=== PATIENT | female | born 1985 | race Caucasian/White ===

== ENCOUNTER 2025-04-06 08:50 | Outpatient (CLI) | payer MEDICAID, SELFPAY ==
--- OUTSIDE RECORDS SUMMARY | 2025-04-09 08:53 | XMS_ITS | Clinical Summary ---
Author Organization [facility] Address [address] [place] [address] Phone Care Team Providers Care Facility Sales And Admin Name Role Phone Ethel Fenton APRN Primary Care Physician Conditions or Problems No information available. Medications No information available. Medications Administered No information available. Allergies, Adverse Reactions, Alerts No information available. Results No information available. Plan of Care No information available. Procedures No information available. Vital Signs No information available. Immunizations No information available. Advance Directives No information available.
== END 2025-04-06 23:59 | disposition home or self-care (01) ==
LOC: LAB.DROPOF 04-09 08:50
PROVIDERS: Visit Provider Nurse Practitioner
DX: R35.0 Frequency of micturition (principal)
CPT/HCPCS: 87086

== ENCOUNTER 2025-04-18 08:53 | Emergency (ER) | payer MEDICAID, SELFPAY ==
[2025-04-18] VITALS (13 sets, daily range): BP systolic 77–142; BP diastolic 33–99; PULSE 80–99; RESP 14–21; TEMP 36.6–36.8; O2SAT 95–99; BMI 32.8
--- NOTE | 2025-04-18 09:04 | ECG_ITS ---
APPROVED REPORT Exam: Resting ECG HR:90 bpm ECG Measurements Heart Rate 90 AXES KS 147 P 51 QRSd 101 QRS 49 QT 346 T 15 QTc 394 Conclusion SINUS RHYTHM NONSPECIFIC T-WAVE ABNORMALITY BORDERLINE ECG UNCONFIRMED REPORT Electronically signed by : Morgan Lindquist, 04/18/2025 15:21:14
--- OUTSIDE RECORDS SUMMARY | 2025-04-18 09:07 | XMS_ITS | Clinical Summary ---
Author Organization [employer] [facility] Address [address] [place] [address] Phone Care Team Providers Care General Handling Supervisor Name Role Phone Ethel Fenton APRN Primary [...]
[2025-04-18 09:13] LABS: Microscopic, Urine URINE MICROSCOPIC (MICROSCOPIC)
--- NOTE | 2025-04-18 09:29 | HMH.EDGENADL ---
Discharge Plan Disposition Chief Complaint: Alcohol Prescriptions Prescriptions: No Action multivitamin Tablet 1 tab PO DAILY atorvastatin [Lipitor] 40 mg tablet 40 mg PO DAILY levetiracetam [Keppra] 500 mg tablet 500 mg PO BID folic acid 20 mg capsule 20 mg PO DAILY lisinopril 10 mg tablet 10 mg PO DAILY sertraline 25 mg tablet 25 mg PO DAILY omeprazole 20 mg capsule,delayed release(DR/EC) 20 mg PO DAILY black cohosh 200 mg capsule 200 mg PO DAILY topiramate 25 mg capsule,extended release 24hr 25 mg PO DAILY Veozah 45 mg tablet 45 mg PO DAILY thiamine HCl (vitamin B1) 100 mg capsule 100 mg PO DAILY phenazopyridine [Pyridium] 200 mg tablet 200 mg PO Q8H 2 Days Qty: 6 0RF nitrofurantoin monohyd/m-cryst [Macrobid] 100 mg capsule 100 mg PO Q12H 7 Days Qty: 14 0RF Rx Instructions: must administer with a meal/food Referrals Follow up/Referrals: Provider,Referral, MD [Primary Care Provider, Medical] - See instructions Clinical Impressions Clinical Impression: Alcohol withdrawal syndrome, Alcohol dependence Print Language Print Language: [place] Discharge ED Provider: Tessie Lindquist General Adult HPI General Chief complaint: Alcohol Stated complaint: alcohol withdrawl ba racing pulse Time Seen by Provider: 04/18/25 09:16 Mode of Arrival: Ambulatory Source of Information: Patient Description of Symptoms (Recalled from ER Triage Doc. by RN): pt is here for alcohol withdrawl s/s, pt drinks 1-2 pints a day of vodkaa and has been on a binge for 3 weeks, before that had been sober since november, attends AA meetings. her last drink was at 0900 today before coming to ER History of Present Illness HPI narrative: Patient is a 39-year-old female presenting today with alcohol withdrawal symptoms. She states I am trying to quit but my body will not let me. States that she has been intermittently drinking heavily since she was 16 years old. Did have 6-month period of sobriety earlier this year. However the last 3 weeks she states she has been drinking during all waking hours including multiple pints of vodka daily. Has been having some disagreements with her boyfriend and feeling like she is having panic attacks which have prompted some of her drinking. Has tried to stop cold turkey the last several days but has been unable to and has been continuing to drink some including this morning. States that she does want help she wants to stop drinking and she also wants potential placement in a rehab facility. Related Data Home Medications ?Medication ?Instructions ?Recorded ?Confirmed atorvastatin 40 mg tablet (Lipitor) 40 mg PO DAILY 04/06/25 04/06/25 black cohosh 200 mg capsule 200 mg PO DAILY 04/06/25 04/06/25 fezolinetant 45 mg tablet (Veozah) 45 mg PO DAILY 04/06/25 04/06/25 folic acid 20 mg capsule 20 mg PO DAILY 04/06/25 04/06/25 levetiracetam 500 mg tablet 500 mg PO BID 04/06/25 04/06/25 (Keppra) lisinopril 10 mg tablet 10 mg PO DAILY 04/06/25 04/06/25 multivitamin 1 tab PO DAILY 04/06/25 04/06/25 omeprazole 20 mg capsule,delayed 20 mg PO DAILY 04/06/25 04/06/25 release sertraline 25 mg tablet 25 mg PO DAILY 04/06/25 04/06/25 thiamine HCl (vitamin B1) 100 mg 100 mg PO DAILY 04/06/25 04/06/25 capsule topiramate 25 mg capsule,extended 25 mg PO DAILY 04/06/25 04/06/25 release 24 hr Previous Rx's ?Medication ?Instructions ?Recorded nitrofurantoin 100 mg PO Q12H 7 days #14 caps 04/06/25 monohydrate/macrocrystals 100 mg capsule (Macrobid) phenazopyridine 200 mg tablet 200 mg PO Q8H 2 days #6 tabs 04/06/25 (Pyridium) Allergies Allergy/AdvReac Type Severity Reaction Status Date / Time cephalexin (From Keflex) Allergy Verified 04/06/25 14:13 clarithromycin (From Biaxin) Allergy Verified 04/06/25 14:13 prednisone Allergy Verified 04/06/25 14:13 [facility] Disclaimer: The information contained in this section may have been updated after the patient was seen, as this information can be updated by other users. Medical History (Updated 04/18/25 @ 09:28 by Tessie Lindquist MD) UTI (urinary tract infection) High cholesterol Hypertension GERD (gastroesophageal reflux disease) Social History (Updated 04/06/25 @ 14:42 by Jerri Cao APRN) Smoking Status: Never smoker alcohol intake: never current occupational status: employed Travel in the last 8 weeks?: None Have you lived/traveled outside US in past 30 days?: No Contact w/someone who lives/traveled outside US past 30 days?: No Exposure to someone with infectious disease in past 14 days?: No Do you have a fever (greater than 100.4 F or 38 C)?: No Have you tested positive for COVID-19?: No Exposed to someone with COVID-19 in past 14 days?: No Do you have a sore throat?: No Do you have a cough?: No Do you have any weakness?: No Do you have any diarrhea?: No Are you experiencing any unusual bleeding?: No Do you have any muscle aches/pain?: No Do you have any abdominal pain?: Yes Are you experiencing loss of taste or smell?: No ROS Obtained: Yes All systems reviewed & no additional complaints except as documented Physical Exam General General appearance: anxious (Crying) Respiratory Respiratory exam: Present normal lung sounds bilaterally Cardiovascular Cardiovascular exam: Present regular rate; Absent normal rhythm Abdominal Exam Abdominal exam: Present soft; Absent distention Neurological Exam Neurological exam: Present alert and oriented X3 Medical Decision Making Medical Records Screening: Per USPSTF and CDC recommendations, given the prevalence of disease in our region, it is our hospital?s policy to screen for HIV and viral Hepatitis for all patients aged 18 and over and those with ongoing risk factors. Gamaliel Inquiry Pt receiving controlled substance: No Vital Signs: 04/18/25 09:09 04/18/25 09:30 04/18/25 10:00 Temperature 97.9 F Temperature Source Oral Pulse Rate 82 82 Pulse Rate [Left Radial] 99 H Respiratory Rate 20 20 20 Blood Pressure 142/93 H 102/59 L Blood Pressure [Right Arm] 139/99 H Blood Pressure Mean 104 73 Blood Pressure Mean [Right Arm] 112 02 Sat by Pulse Oximetry 99 97 96 Oxygen Delivery Method Room Air 04/18/25 10:15 04/18/25 10:30 04/18/25 11:00 Temperature Temperature Source Pulse Rate 92 H 82 83 Pulse Rate [Left Radial] Respiratory Rate 14 20 20 Blood Pressure 102/59 L 120/85 104/57 L Blood Pressure [Right Arm] Blood Pressure Mean 94 72 Blood Pressure Mean [Right Arm] 02 Sat by Pulse Oximetry 95 99 95 Oxygen Delivery Method 04/18/25 12:11 04/18/25 12:56 04/18/25 13:01 Temperature Temperature Source Pulse Rate 88 82 84 Pulse Rate [Left Radial] Respiratory Rate 16 18 19 Blood Pressure 90/47 L 93/43 L 91/45 L Blood Pressure [Right Arm] Blood Pressure Mean 61 58 Blood Pressure Mean [Right Arm] 02 Sat by Pulse Oximetry 95 95 95 Oxygen Delivery Method Room Air 04/18/25 13:30 Temperature Temperature Source Pulse Rate 85 Pulse Rate [Left Radial] Respiratory Rate 21 Blood Pressure 89/37 L Blood Pressure [Right Arm] Blood Pressure Mean Blood Pressure Mean [Right Arm] 02 Sat by Pulse Oximetry 95 Oxygen Delivery Method Room Air Lab Data Lab results reviewed: Yes I reviewed the patient's lab results. Lab Results 04/18/25 08:59: Urine Color Yellow, Urine Appearance Clear, Urine pH 6.0, Ur Specific Hardy 1.020, Urine Protein Negative, Urine Glucose (UA) Negative, Urine Ketones Negative, Urine Blood Negative, Urine Nitrate Negative, Urine Bilirubin Negative, Urine Urobilinogen 0.2, Ur Leukocyte Esterase 1+ A, Urine WBC 5-10, Ur Squamous Epith Cells 5-10, Urine Bacteria 2+, Urine Opiates Screen Negative, Urine Methadone Screen Negative, Ur Barbituates Screen Negative, Ur Phencyclidine Scrn Negative, Ur Amphetamines Screen Negative, U Benzodiazepines Scrn Negative, Urine Cocaine Screen Negative, U Marijuana (THC) Screen Positive H 04/18/25 09:30: WBC 9.9, RBC 4.88, Hgb 14.0, Hct 42.6, MCV 87.3, MCH 28.7, MCHC 32.9, RDW 12.8, Plt Count 269, MPV 9.7, Neut % (Auto) 76.1, Lymph % (Auto) 19.8, [place] % (Auto) 3.0, Eos % (Auto) 0.1, Baso % (Auto) 0.7, Neut # (Auto) 7.5, Lymph # (Auto) 2.0, [place] # (Auto) 0.3, Eos # (Auto) 0.0, Baso # (Auto) 0.1, Sodium 138, Potassium 3.7, Chloride 108 H, Carbon Dioxide 21 L, Anion Gap 12.7, BUN 13, Creatinine 0.80, Estimated Creat Clear 141, Estimated GFR 79, Est GFR ( Amer) 96, Glucose 97, Calcium 9.9, Magnesium 1.8, Total Bilirubin 0.4, AST 29, ALT 18, Alkaline Phosphatase 58, Total Protein 7.7, Albumin 4.6, Globulin 3.1, Albumin/Globulin Ratio 1.5, Serum HCG, Qual Negative, Salicylates < 1.0 L, Acetaminophen < 10 L, Plasma/Serum Alcohol 231 H 04/18/25 13:38: Plasma/Serum Alcohol 187 H 04/18/25 09:30 04/18/25 09:30 Orders (Tests/Meds): ED MEDICATIONS Generic Name Dose Route Start Last Admin Trade Name Freq PRN Reason Stop Dose Admin Multivitamins 10 ml/ Thiamine 1,015 mls @ 150 mls/hr 04/18/25 09:27 04/18/25 09:42 HCl 100 mg/ Magnesium Sulfate IV 04/18/25 16:12 150 mls/hr 2 gm/ Lactated Ringer's .[id number] BROOKS Administration Sodium Chloride 10 ml 04/18/25 09:26 Sodium Chloride 0.9% 10ml Vial IV 05/18/25 09:25 NEEDED PRN to Dilute Lorazepam inj Discontinued Medications Generic Name Dose Route Start Last Admin Trade Name Freq PRN Reason Stop Dose Admin Chlordiazepoxide HCl 50 mg 04/18/25 11:26 04/18/25 11:39 Chlordiazepoxide 25mg Capsule PO 04/18/25 11:27 50 mg ONCE ONE Administration Lorazepam 1 mg 04/18/25 09:26 04/18/25 09:34 Lorazepam 2mg/Ml Vial IV 04/18/25 09:27 1 mg ONCE ONE Administration ORDERS Category Date Time Status Consult Bass Singer [CONS] Routine Cons 04/18/25 09:18 Active Acetaminophen Stat Lab 04/18/25 09:30 Completed Blood alcohol [Ethyl Alcohol] Stat Lab 04/18/25 13:38 Completed CBC w/Auto Diff [Complete Blood Count Auto Diff] Stat Lab 04/18/25 09:30 Completed CMP [Comprehensive Metabolic Panel] Stat Lab 04/18/25 09:30 Completed Drug Screen,Urine Stat Lab 04/18/25 08:59 Completed Ethanol [Ethyl Alcohol] Stat Lab 04/18/25 09:30 Completed HCG Qualitative, Serum Stat Lab 04/18/25 09:30 Completed Magnesium Stat Lab 04/18/25 09:30 Completed Salicylate Stat Lab 04/18/25 09:30 Completed UA [Urinalysis and Microscopic] Stat Lab 04/18/25 08:59 Completed Urine Culture Stat Micro 04/18/25 08:59 Received Medical Decision Narrative: Very well-appearing 39-year-old female with a CIWA score of 0 presents today with what she describes as alcohol withdrawal symptoms with significant and heavy dependency that is been chronic and intermittent. We have consulted with her peers technical support engineer and will attempt to get the patient to [facility]. In the meantime we will give her rally pack some Ativan check basic electrolytes and reassess. She does not require inpatient hospitalization at the moment regarding her withdrawal but I do believe she would significantly benefit from the rehab facility such as as [facility]. Reassessment 2:03 PM patient has remained very stable. Sheri our mis specialist had extensive involvement with the patient ultimately was able to get the patient a bed at [facility] for acute rehab as the patient did not feel comfortable going home for multiple reasons including safety reasons but also felt as though she may have worsening withdrawal. Sheri also spoke to [facility] both of whom have accepted the patient. Patient will be discharged from my perspective and will subsequently be transported back home with deputies to get her clothing and materials and then she will be taken to [facility]. Patient did not have any evidence of severe withdrawal while in the emergency department. Critical Care Critical Care Time Critical Care Time: Yes Attestation: On 04/18/25, the high probability of a clinically significant, sudden or life threatening deterioration of the following system(s) required my full and direct attention, intervention and personal management. The time I documented below is in addition to time spent performing reported procedures but includes the following listed in this critical care notation. Total Time Total Critical Care Time: 35
[2025-04-18] MEDS: LORazepam 2MG/ML VIAL 1 MG IV (09:34)
[2025-04-18] MEDS: MVI, ADULT NO.1 WITH VIT K 10 ML, THIAMINE HCL 100 MG, MAGNESIUM SULFATE 2 GM in LACTAT... 150 ML IV (09:42)
[2025-04-18 09:46] LABS: Basophils # 0.1 K/mm3 (0-0.2); Basophils % 0.7 % (0.1-2.0); Eosinophils % 0.1 % (0.1-12.0); Hematocrit 42.6 % (37.0-47.0); Immature Granulocytes # 0.03 10^3uL; Immature Granulocytes % 0.3 %; Lymphocytes % 19.8 % (10-50); Mean Corpuscular HGB Conc 32.9 g/dL (31.8-35.4); Mean Corpuscular Hemoglobin 28.7 pg (27.0-31.2); Mean Corpuscular Volume 87.3 fl (81-99); Mean Platelet Volume 9.7 fl (7.4-10.4); Monocytes # 0.3 K/mm3 (0.1-1.0); Neutrophils # 7.5 K/mm3 (1.8-7.8); Neutrophils % 76.1 % (37.0-80.0); Nucleated Red Blood Cells # 0 10^3/uL; Nucleated Red Blood Cells % 0 %; Platelet Count 269 K/mm3 (142-424); Red Blood Count 4.88 M/mm3 (4.20-5.40); Red Cell Distribution Width 12.8 % (11.5-17.5); Red Cell Distribution Width-SD 40.9 fL; White Blood Count 9.9 K/mm3 (4.8-10.8)
[2025-04-18 09:57] LABS: Appearance,Urine CLEAR (Clear); Bilirubin,Urine Negative (Negative); Blood, Urine Negative (Negative); Color,Urine YELLOW (Yellow); Glucose,Urine (UA) Negative (Negative); Ketones,Urine Negative (Negative); Leukocyte Esterase,Urine 1+ (Negative); Nitrate,Urine Negative (Negative); Protein,Urine Negative (Negative); Urobilinogen,Urine 0.2 EU/dl (0.2)
[2025-04-18 09:58] LABS: Alanine Aminotransferase 18 U/L (12-78); Albumin Level 4.6 g/dl (3.5-5.0); Albumin/Globulin Ratio 1.5 (1.1-1.8); Alkaline Phosphatase 58 U/L (38-126); Anion Gap 12.7 mEq/L (5-15); Aspartate Amino Transferase 29 U/L (14-36); Bilirubin,Total 0.4 mg/dl (0.2-1.3); Blood Urea Nitrogen 13 mg/dl (7-17); Calcium 9.9 mg/dl (8.4-10.2); Carbon Dioxide 21 mmol/L (22.0-30.0); Chloride 108 mmol/L (98-107); Creatinine Clearance Estimated 141 mL/min (50-200); Estimated Glomerular Filt Rate 79 ml/min (>60); GFR (African American) 96 ML/MIN (>60); Globulin 3.1 g/dL (1.3-3.2); Glucose 97 mg/dl (74-100); Magnesium 1.8 mg/dl (1.6-2.3); Potassium 3.7 mmoL/L (3.5-5.1); Sodium 138 mmol/L (136-145); Total Protein,Serum 7.7 g/dl (6.3-8.2)
[2025-04-18 10:17] LABS: Ethyl Alcohol 231 mg/dl (0-10)
[2025-04-18 10:18] LABS: HCG Qualitative, Serum Negative (Negative)
--- NOTE | 2025-04-18 10:26 | PC.NURSE ---
alissa peer support at bedside at this time
[2025-04-18 10:51] LABS: Bacteria,Urine 2+ /lpf
[2025-04-18 12:09] LABS: Acetaminophen < 10 ug/ml (10-30); Salicylate < 1.0 mg/dL (2.0-20.0)
--- NOTE | 2025-04-18 12:13 | PC.NURSE ---
pt completed intake assessment with [facility], awaiting last few lab results to fax over to them and will await evaluation response, pt is resting quietly and has eaten a lunch tray and denies any needs at this time
[2025-04-18 12:40] LABS: Barbiturates Screen,Urine Negative ng/ml (<200); Benzodiazepines Screen,Urine Negative ng/ml (<200)
[2025-04-18 12:41] LABS: Amphetamine/Metha Screen,Urine Negative ng/ml (<1000); Methadone Screen,Urine Negative ng/ml (<300)
[2025-04-18 12:42] LABS: Cannabinoid Screen,Urine Positive ng/ml (<50)
[2025-04-18 12:43] LABS: Cocaine Screen,Urine Negative ng/ml (<300); Opiate Screen,Urine Negative ng/ml (<300)
[2025-04-18 12:44] LABS: Phencyclidine Screen,Urine Negative ng/ml (<25)
--- NOTE | 2025-04-18 13:05 | PC.NURSE ---
The pts intake packet was successfully sent to [facility].
--- NOTE | 2025-04-18 13:49 | PC.NURSE ---
Dr. Lindquist aware of the pts hypotension. He states it is okay at this time. No orders. I rounded on the pt. pt is sleeping on her side. call owens in reach.
[2025-04-18 13:52] LABS: Ethyl Alcohol 187 mg/dl (0-10)
--- NOTE | 2025-04-18 14:16 | PC.NURSE ---
called report to ruba rice at [facility]
--- NOTE | 2025-04-18 14:24 | PC.NURSE ---
pt does not want to go to [facility] and wants to go home before going to [facility], pt is still legally intoxicated and we have requested ride from [facility], they arent available for transport until 5pm
--- NOTE | 2025-04-18 14:27 | PC.NURSE ---
Dr Lindquist wanted pt ambulated. Shahla and I got pt out of bed and pt was able to ambulate without difficulties
--- NOTE | 2025-04-18 14:37 | PC.NURSE ---
Called [facility] to advise them of this pt left the ER in a black 4 dr melgar and the pt was still under the influence
--- NOTE | 2025-04-18 14:41 | PC.NURSE ---
Pt ambulated out of the ED Sheri and I stopped and spoke with her regarding a ride home. The pt refused and said she was walking home. I walked out to the parking lot and she got in the assembly line driver seat of a black sedan and drove off. The [employer] executive secretary social welfare was present and notified Yrn Benitez, we also called and notified dispatch due to the pt being intoxicated over the legal limit.
--- NOTE | 2025-04-18 17:58 | PEERSUPPORT ---
Peer Support Note Patient Information Patient Information: DOS: 04/18/2025 ? ETOH Last Ingested: 04/18/2025 ? ETOH level at Admission: 231 ? ETOH HX: Pt started drinking again, progressed to 2 pints- a fifth of vodka daily. Pt Waking up in middle of the night with heart beating fast then drinking for comfort.? ? ETHO Current Consumption: 1-2 pints of vodka daily , sometimes a fifth of vodka. ? Previous Treatment: Inpatient treatment ? Longest Length of Sobriety: 1 year ? Legal Issues: None ? Support System: None at this time; pt has not shared with anyone her need for treatment. Mother would be supportive. ? Current Stressors: -Alcohol withdrawal; anxiety - Needing to feel safe within -Relationships -Expectations and responsibilities ? Motivation for Change: Pt is motivated to commit to inpatient treatment but stated she is feared of having seizures and feels she will need medical detox/stabilization. She is interested in [facility] based treatment, as she has been on a spiritual journey and struggling to reconnect. Pt has experienced the goodness of recovery and wants to get back to that part of herself. ? Ps shared personal experience relevant to situation with priority of seeking treatment as step one in the process then finding recovery process. ? Pt receptive and accepting of support shown by ps. ? Ps and pt discuss treatment options: ? Medical Detox: [facility]. Ps facilitates intake assessment via phone call; Pt completes intake; [facility] approves admission. ? Inpatient Treatment: [place], [place] [phone] Ps facilitates intake assessment via phone call; Pt completes intake; [facility] approves for admission post completion of medical detox/stabilization. ? [facility] to provide transportation from [facility] to [facility] when pt is medically cleared. ? Transportation: [employer] to provide transportation to [facility]. ? Potential Barriers: -lack of connection to recovery support or community -continue to drink alcohol -Lack of distress tolerance -Underlying issues ? Harm Reduction: -Connection to [facility] Peer support -Referral to Medical detox>Inpatient treatment Plan - Education on alcohol use disorder and under lying issues ? Recovery Plan of action: -Refrain from drinking alcohol -Report home then transport to [facility] -Contact [facility] prior to discharge to transfer >Inpatient treatment -Follow up with ps upon completion or during as needed; contact information provided.
== END 2025-04-18 15:19 | disposition home or self-care (01) ==
PROVIDERS: Emergency Provider Student in an Organized Health Care Education/Training Program
DX: F10.139 Alcohol abuse with withdrawal, unspecified (principal); Y90.8 Blood alcohol level of 240 mg/100 ml or more
CPT/HCPCS: 80053; 80307; 80320; 80329; 81001; 83735; 84703; 85025; 87086; 93005; 96365; 96366; 96375; 99285; J2060; J3411; J3475; J7120